=== PATIENT | female | born 1945 ===

== ENCOUNTER 2023-12-02 10:16 | Outpatient (CLI) | payer MEDICARE, BC, SELFPAY | END 2023-12-02 10:17 | disposition home or self-care (01) | LOC: AMB 12-13 22:41 | PROVIDERS: Visit Provider Emergency Medicine | DX: M54.9 Dorsalgia, unspecified (principal); R10.2 Pelvic and perineal pain; R06.09 Other forms of dyspnea | CPT/HCPCS: A0425; A0427 ==